=== PATIENT | female | born 1950 | race Caucasian/White ===

== ENCOUNTER 2017-08-13 06:49 | Day surgery (SDC) | payer MEDICARE ==
[2017-08-13] MEDS ORDERED: Sodium Chloride 0.9% 10 ML ONE (06:59)
[2017-08-13] MEDS: Bupivacaine 0.5%/EPINEPHrine 1:200,000 50 ML MDV ONE ×2 (07:17→08:05)
[2017-08-13] MEDS: Sodium Tetradecyl Sulfate 1% 20 MG/2 ML SDV ONE ×2 (07:18→09:00)
[2017-08-13] MEDS ORDERED: Sodium Chloride 0.9% 1,000 ML IV SCH (07:30)
[2017-08-13] MEDS ORDERED: Propofol 200 MG/20 ML SDV ONE ×2 (07:44→08:14)
[2017-08-13] MEDS ORDERED: fentaNYL 100 MCG/2 ML SDV ONE (07:45)
[2017-08-13] MEDS ORDERED: Midazolam 1 MG/ML 2 ML SDV ONE (07:45)
[2017-08-13] MEDS ORDERED: Lidocaine 1% with EPINEPHrine 1:100,000 50 ML MDV ONE (08:24)
[2017-08-13] MEDS: Lidocaine 1% w/EPINEPHrine 50 ML, Sodium Bicarbonate 5 MEQ in Sodium Chloride 0.9% 950 ML INJECT SCH ×2 (08:27→08:36)
[2017-08-13 09:38] VITALS: BP 165/84
--- NOTE | 2017-08-13 12:05 | OR ---
DATE OF PROCEDURE: 08/13/2017 PROCEDURE: 1. Radiofrequency ablation of left greater saphenous vein. 2. Radiofrequency ablation of right greater saphenous vein. 3. Sclerotherapy left leg, multiple. 4. Sclerotherapy right leg, multiple. 5. Compression wrapping, two-stage, left leg (23201). 6. Compression wrapping, right leg, two-stage (18442). COMPLICATIONS: None. COMMUNITY SERVICE SPECIALIST: None. ANESTHETIC: MAC/local. INDICATIONS: A pleasant 67-year-old female with venous reflux disease requiring intervention. Risks, benefits, alternatives, limitations including but not limited to infection, bleeding, and DVT formation were explained to the patient and wished to proceed. PROCEDURE IN DETAIL: The patient was placed in supine position. The left GSV was accessed first. Due to tortuousities, it was only accessed at the level of the proximal calf. This was accessed by using a 21-gauge needle that was exchanged for a 35,000th wire, then exchanged for a 7-Bahamian sheath. 1% lidocaine with epinephrine was used to anesthetize the incision spot prior to this. The RFA probe was then advanced 2 to 3 cm from the saphenofemoral junction. This was verified a second and third time. A tumescent fluid again would be injected in a 1 cm jacket around this. The RFA probe was deployed x2 proximally and distally and x1 in all other segments. Sheath and device were then removed. Direct pressure was held for 10 minutes. Dermabond was applied. The same procedure was performed on the right leg, same manner, same fashion, same technique, in the same location using the same sequence. Sclerotherapy was then performed left and right legs using 0.33% sodium tetradecyl. This was always drawn back to ensure intravascular injection only. No more than 2 mL was injected in one location. Six on the right, seven on the left. Two-stage compression wrapping was then performed using CoFlex wrapping in a [id number] fashion, quqhsdqi-[id number]-bpeplf gradient. The patient tolerated the procedure well. Robby Doshi MD /[id number]
== END 2017-08-13 09:55 | disposition home or self-care (01) ==
LOC: JP.SDS 06:49
PROVIDERS: ATTEND Surgery
DX: I87.2 Venous insufficiency (chronic) (peripheral) (principal); M79.89 Other specified soft tissue disorders; M79.605 Pain in left leg; M79.604 Pain in right leg
CPT/HCPCS: 36471; 36475; J1642; J2250; J2704; J3010; J7040; J7050; J3490

== ENCOUNTER 2018-02-10 07:40 | Day surgery (SDC) | payer MEDICARE ==
[2018-02-10] MEDS ORDERED: Midazolam 1 MG/ML 2 ML SDV ONE (08:12)
[2018-02-10] MEDS ORDERED: Propofol 200 MG/20 ML SDV ONE (08:12)
[2018-02-10] MEDS ORDERED: fentaNYL 100 MCG/2 ML SDV ONE (08:12)
[2018-02-10] MEDS: Lactated Ringers 1,000 ML IV SCH (08:20)
[2018-02-10 10:40] VITALS: BP 144/73
--- NOTE | 2018-02-10 14:26 | OR ---
DATE OF PROCEDURE: 02/10/2018 PREOPERATIVE DIAGNOSIS: Colon cancer screening. POSTOPERATIVE DIAGNOSIS: Unremarkable colonoscopy. PROCEDURE: Colonoscopy to the cecum. SURGEON: Antonino Manuel MD. ANESTHESIA: IV anesthesia with monitored anesthesia care. INDICATION: This 68-year-old white female is referred for a colonoscopy for colon cancer screening. She says her last colonoscopic exam was done 10 years ago. I counseled her for the procedure including risks and alternatives, and she gave her informed consent to proceed. DESCRIPTION OF PROCEDURE: The patient was placed in the left lateral decubitus position. IV anesthesia was administered by the Anesthesia Service. Time-out was held. A rectal exam was performed, which was unremarkable. The flexible video Olympus colonoscope was introduced through her anus, up her rectum, and out her colon all way to the cecum. Once the cecum was reached, the scope was slowly withdrawn, examining the mucosa throughout. No mucosal abnormalities were noted. The scope was retroflexed in the rectum with the distal rectum appearing unremarkable. The scope was straightened and removed. She tolerated the procedure well. Antonino Manuel MD /[id number]
== END 2018-02-10 10:45 | disposition home or self-care (01) ==
LOC: JP.SDS 07:40
PROVIDERS: ATTEND Surgery
DX: Z12.11 Encounter for screening for malignant neoplasm of colon (principal); I10 Essential (primary) hypertension; Z88.8 Allergy status to other drugs, medicaments and biological substances
CPT/HCPCS: J2250; J2704; J3010; J7120

== ENCOUNTER 2019-09-26 08:04 | Day surgery (SDC) | payer MEDICARE ==
[~2019-09-26 08:04] MED LIST: Lactated Ringers 1,000 ML IV SCH; ceFAZolin 2 GM in Sodium Chloride 0.9% 50 ML IV ONE
[2019-09-26] MEDS ORDERED: Neostigmine Methylsulfate 1 MG/ML 5 ML Syringe ONE (08:36)
[2019-09-26] MEDS ORDERED: fentaNYL 100 MCG/2 ML SDV ONE (08:36)
[2019-09-26] MEDS ORDERED: Succinylcholine 200 MG/10 ML MDV ONE (08:36)
[2019-09-26] MEDS ORDERED: Glycopyrrolate 0.2 MG/ML 5 ML MDV ONE (08:36)
[2019-09-26] MEDS ORDERED: Dexamethasone 4 MG/ML SDV ONE (08:36)
[2019-09-26] MEDS ORDERED: Propofol 200 MG/20 ML SDV ONE (08:36)
[2019-09-26] MEDS ORDERED: Ondansetron 4 MG/2 ML SDV ONE (08:36)
[2019-09-26] MEDS ORDERED: Rocuronium 50 MG/5 ML Vial ONE (08:36)
[2019-09-26] MEDS: Nozin Nasal Sanitizer NASBOTH SCH ×3 (08:49→21:19)
[2019-09-26] MEDS ORDERED: Bupivacaine 0.5% 30 ML SDV ONE (10:41)
[2019-09-26] MEDS ORDERED: Midazolam 1 MG/ML 2 ML SDV ONE (10:45)
[2019-09-26] MEDS: Povidone-Iodine 10% Soln 118.25 ML Bottle ONE ×2 (12:05→13:00)
[2019-09-26] MEDS ORDERED: Morphine 2 MG/ML Syringe IVPUSH PRN (13:32)
[2019-09-26] MEDS ORDERED: Ondansetron 4 MG/2 ML SDV IVPUSH PRN (13:32)
[2019-09-26] MEDS ORDERED: Acetaminophen/oxyCODONE 325-5 MG Tab PO PRN (13:32)
--- NOTE | 2019-09-26 14:09 | CR ---
Shoulder 1V Rt CLINICAL HISTORY: Postop FINDINGS: Patient is status post right shoulder reverse arthroplasty. Components appear well seated. There is degenerative change the AC joint Impression: Status post reverse right shoulder arthroplasty
[2019-09-26] MEDS: Ketorolac 30 MG/ML SDV IVPUSH SCH ×2 (14:46→21:18)
[2019-09-26] MEDS: ceFAZolin 1 GM in Premix Bag 1 BAG IV SCH (15:23)
[2019-09-26] MEDS: Hydrochlorothiazide 12.5 MG Cap PO SCH (15:27)
[2019-09-26] MEDS: Sodium Chloride 0.9% 1,000 ML IV SCH (17:19)
[2019-09-26] MEDS ORDERED: Pravastatin 20 MG Tab PO SCH (21:00)
[2019-09-26] MEDS: Acetaminophen/HYDROcodone 325-5 MG Tab PO PRN (21:17)
[2019-09-27] MEDS: ceFAZolin 1 GM in Premix Bag 1 BAG IV SCH ×2 (00:39→08:01)
[2019-09-27] MEDS: Sodium Chloride 0.9% 1,000 ML IV SCH (01:43)
[2019-09-27] MEDS: Ketorolac 30 MG/ML SDV IVPUSH SCH (06:28)
[2019-09-27] MEDS: Hydrochlorothiazide 12.5 MG Cap PO SCH (08:00)
[2019-09-27] MEDS: Acetaminophen/HYDROcodone 325-5 MG Tab PO PRN (08:01)
[2019-09-27] MEDS: Nozin Nasal Sanitizer NASBOTH SCH (08:09)
[2019-09-27] MEDS ORDERED: amLODIPine 5 MG Tab PO SCH (09:00)
[2019-09-27] MEDS ORDERED: Aspirin 81 MG Tab.Chew PO SCH (09:00)
[2019-09-27] MEDS ORDERED: Atenolol 50 MG Tab PO SCH (09:00)
[2019-09-27 12:01] VITALS: BP 124/62; PULSE 59
--- NOTE | 2019-10-05 13:47 | OR ---
DATE OF PROCEDURE: 09/26/2019 SURGEON: Mitul Arias MD PREOPERATIVE DIAGNOSIS: Rotator cuff arthropathy, right shoulder. POSTOP DIAGNOSIS: Rotator cuff arthropathy, right shoulder. PROCEDURE: Reverse total shoulder arthroplasty, right shoulder, using Elvia trabecular metal components. ANESTHESIA: Interscalene block with general. INDICATIONS: Ami is a 69-year-old female with a history of progressive pain and disability in her right arm over the past year. X-rays and examination are consistent with rotator cuff arthropathy with superior migration of the humeral head. She has limited active range of motion above shoulder level. Now presents for a reverse shoulder arthroplasty. Risks, benefits, and potential complications of the procedure were discussed. DESCRIPTION OF PROCEDURE: After adequate anesthesia was obtained, the patient was placed in a modified beach-chair position. Right shoulder and arm were then prepped and draped in a sterile fashion. Anterior incision was made and carried down through the subcutaneous tissues. The cephalic vein was identified and retracted laterally with the deltoid. The clavipectoral fascia was divided and a self-retaining retractor was placed beneath the conjoined tendon and the deltoid. The subscapularis was then resected off the lesser tuberosity exposing the joint. Moderate effusion was present. The capsule was released inferiorly and once this was accomplished, the arm was externally rotated presenting the humeral head into the wound. Complete tear of the rotator cuff was present with retraction back to the glenoid. Suture anchors were present in the tuberosity. Biceps tendon was not within the bicipital groove consistent with a chronic tear of the long head. Starting awl was then placed into the humeral head aligning with the shaft. The shaft was then sequentially reamed by hand. The last reamer was left in place with good cortical contact. Resection guide was then placed and an oscillating saw used to resect the humeral head. The metaphyseal reamer was then utilized. A trial stem was then placed with excellent fit. Retractor was then placed about the glenoid. The glenoid labrum was excised. Remaining portion of the biceps tendon was also excised. The inferior rim of the glenoid was identified and the aiming guide was placed setting it just at the inferior rim and a guide pin was placed into the glenoid. A center hole was then drilled over this. The glenoid was then reamed by hand removing the articular surface. Peg drill was then used. Shoulder was irrigated and the glenoid baseplate was then tapped into position. Additional fixation was obtained with variable angle screws. Excellent purchase was obtained with both screws and the locking caps were then placed. Glenosphere was then placed over the base plate and tapped into position. Confirmation this was seated was done both visually and by attempting to remove the glenoid with a [place]. This was irrigated once again and attention was returned to the humerus. Trial implant was then placed and the humerus was reduced. This showed a little bit of laxity and the next size up was then utilized, which provided excellent stability. The trial was removed. Trial stem was removed. The humerus was irrigated and the final trabecular metal stem was then tapped into position. The selected polyethylene implant was then secured into the humerus and the shoulder was reduced once again. This was taken through range of motion, showed no liftoff with functional range of motion and very good tension. The wound was thoroughly irrigated. This was followed by irrigation with dilute Betadine solution. This was left in place for 2.5 minutes and then irrigated once again. A drain was placed through a separate stab incision. Deltopectoral interval was then loosely closed with 0 Vicryl and skin was closed with 2-0 Vicryl and a running 3-0 Monocryl. Sterile dressing was applied. The patient tolerated the procedure very well. There were no complications. She was taken from the operating room in stable condition. Mitul Arias MD /[id number]
== END 2019-09-27 14:00 | disposition home or self-care (01) ==
LOC: JP.SDS 08:04 → JP.MS 13:32 → JP.SDS 09-27 14:00
PROVIDERS: ATTEND Specialist
DX: M75.121 Complete rotator cuff tear or rupture of right shoulder, not specified as traumatic (principal); M24.311 Pathological dislocation of right shoulder, not elsewhere classified; I10 Essential (primary) hypertension; E78.5 Hyperlipidemia, unspecified; K21.9 Gastro-esophageal reflux disease without esophagitis; M19.90 Unspecified osteoarthritis, unspecified site; E66.9 Obesity, unspecified; Z88.8 Allergy status to other drugs, medicaments and biological substances; Z79.82 Long term (current) use of aspirin; Z79.899 Other long term (current) drug therapy
CPT/HCPCS: 36415; 73020-26-RT; 73020-RT; 80048; 85027; 97110-GP; 97162-GP; 97165-GO; 97530-GP; 97535-GP; A9270-GY; C1713; J0330; J0690; J1100; J1885; J2250; J2405; J2704; J2710; J3010; J3490; J7030; J7050; J7120

== ENCOUNTER 2020-02-18 23:56 | Emergency (ER) | payer MEDICARE ==
[2020-02-19 00:25] VITALS: BP 123/69; PULSE 68
--- NOTE | 2020-02-19 00:36 | EDM.PDOC ---
ED HPI GENERAL MEDICAL PROBLEM - General Chief Complaint: General Stated Complaint: CHEST PAINS Time Seen by Provider: 02/19/20 00:21 Source of Information: Reports: Patient History Limitations: Reports: No Limitations - History of Present Illness INITIAL COMMENTS - FREE TEXT/NARRATIVE: Patient presents after a presumed syncopal episode at home earlier this evening. Her and others returned from fishing and as they were walking toward their house they noticed the patient down on all fours on their dirt driveway. At first they thought that she dropped something and was trying to find it but she was not standing up and family members ran ahead to check things out. Eventually were able to get her in a seated position and after that she was able to walk into the house. She did not really have recollection of what happened. She is not sure if she blacked out/passed out? She seemed unaware of the actual event that happened earlier, unwitnessed. After talking with her and observing her at home for bed, family was concerned and brought her here for additional evaluation. There has not been a previous episode such as this. She denies any recent changes in health or new illnesses. She does describe some left anterior chest wall discomfort, not really intrathoracic pain but more on the front of the chest with palpation and with movement of her left shoulder. She had right shoulder arthroplasty in the winter of 2018 but has no discomfort on that side. Onset: Today Location: Reports: Face, Chest Quality: Reports: Ache Severity: Mild Improves with: Reports: None Worsens with: Reports: None Associated Symptoms: Reports: Syncope (Possible syncopal event.) - Related Data Allergies Allergy/AdvReac Type Severity Reaction Status Date / Time atorvastatin calcium AdvReac Leg Cramps Verified 02/19/20 00:25 [From Lipitor] lisinopril AdvReac Cough Verified 02/19/20 00:25 Home Meds: Home Meds Aspirin [Anabella Chewable] 81 mg PO DAILY 08/24/13 [History] Calcium Carbonate/Vitamin D3 [Oyster Shell 500 mg + Vit D] 1 tab PO BID [History] Cholecalciferol (Vitamin D3) [Vitamin D3] 1,000 unit PO DAILY 08/24/13 [History] Glucosamine HCl [Vegetarian Glucosamine] 750 mg PO BID 08/24/13 [History] Multivitamin [Multi Vitamin Daily] 1 each PO DAILY 08/24/13 [History] Nabumetone 750 mg PO BID PRN 08/24/13 [History] Rattan-3/DHA/Epa/Fish Oil [Fish Oil 1,000 mg Softgel] 1,000 mg PO BID 08/24/13 [ History] amLODIPine [Norvasc] 5 mg PO DAILY 08/24/13 [History] atenoloL [Atenolol] 100 mg PO DAILY 08/24/13 [History] hydroCHLOROthiazide [Hydrochlorothiazide] 12.5 mg PO BID 01/14/16 [History] Pravastatin [Pravachol] 20 mg PO BEDTIME 08/13/17 [History] Past Medical History HEENT History: Reports: Impaired Vision Other HEENT History: wear glasses Cardiovascular History: Reports: High Cholesterol, Hypertension Respiratory History: Reports: None Gastrointestinal History: Reports: None Genitourinary History: Reports: None 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: Musculoskeletal History: Reports: Arthritis, Other (See Below) Other Musculoskeletal History: bilateral shoulder pain Neurological History: Reports: Other (See Below) Other Neuro History: Sciatica Psychiatric History: Reports: None Endocrine/Metabolic History: Reports: Obesity/BMI 30+ Hematologic History: Reports: Blood Transfusion(s) Immunologic History: Reports: None Oncologic (Cancer) History: Reports: None Dermatologic History: Reports: None - Infectious Disease History Infectious Disease History: Reports: Chicken Pox, Measles, Mumps - Past Surgical History Head Surgeries/Procedures: Reports: None HEENT Surgical History: Reports: Adenoidectomy, Tonsillectomy Cardiovascular Surgical History: Reports: None GI Surgical History: Reports: Colonoscopy Female Surgical History: Reports: Tubal Ligation Musculoskeletal Surgical History: Reports: Arthroscopic Knee, Shoulder Replacement, Shoulder Surgery, Other (See Below) Other Musculoskeletal Surgeries/Procedures:: R rotator cuff surgery (2007), R reverse TSA (09/26/2019) Dermatological Surgical History: Reports: None Social & Family History - Family History Family Medical History: Noncontributory - Caffeine Use Caffeine Use: Reports: Coffee ED ROS GENERAL - Review of Systems Review Of Systems: See Below Constitutional: Reports: Weakness HEENT: Reports: Nose Pain (Minor nose pain and abrasions, presumably from her fall episode earlier tonight.) Respiratory: Reports: No Symptoms Cardiovascular: Reports: No Symptoms, Chest Pain (There is pain with palpation in the left upper anterior chest and also with movement of the left shoulder.) GI/Abdominal: Reports: No Symptoms Musculoskeletal: Reports: Shoulder Pain (Left shoulder and left upper outer chest discomfort as noted above.) Skin: Reports: Wound (Scraped to nose surface.) Neurological: Reports: Dizziness (Earlier tonight, not present at this time.) Psychiatric: Reports: Anxiety ED EXAM, GENERAL - Physical Exam Exam: See Below Free Text/Narrative:: This is an adult female lying supine on the bed in room 5. Her provides much of the historical information. Exam Limited By: No Limitations General Appearance: Alert Nose: Other (Most of the anterior aspect of the nose has an abraded surface.) Throat/Mouth: Normal Inspection Neck: Non-Tender Respiratory/Chest: No Respiratory Distress, Lungs Clear, Other (Pain with palpation over the left pectoralis major muscle distribution.) Cardiovascular: Regular Rate, Rhythm GI/Abdominal: Soft, Non-Tender Extremities: No: Joint Swelling, Arm Pain Neurological: Alert, CN II-XII Intact EKG INTERPRETATION EKG Date: 02/19/20 Time: 00:50 Rhythm: NSR Rate (Beats/Min): 66 Ewen: LAD-Left Ewen Deviation P-Wave: Absent QRS: Normal ST-T: Normal QT: Normal EKG Interpretation Comments: Possible atrial fibrillation although there is a great deal of artifact in the EKG. The overall rate seems to be consistent however Course - Vital Signs Last Recorded V/S: Last Vital Signs Temp 36.3 C 02/19/20 00:20 Pulse 68 02/19/20 00:20 Resp 15 02/19/20 00:20 BP 123/69 02/19/20 00:20 Pulse Ox 98 02/19/20 00:20 Orthostatic Blood Pressure [] 111/56 Orthostatic Blood Pressure [] 124/73 Orthostatic Blood Pressure [] 135/60 - Orders/Labs/Meds Orders: Active Orders 24 hr Category Date Time Status EKG Documentation Completion [RC] ASDIRECTED Care 02/19/20 00:53 Ordered Orthostatic Vital Signs [RC] ASDIRECTED Care 02/19/20 00:51 Ordered Chest 2V [CR] Stat Exams 02/19/20 00:53 Ordered EKG 12 Lead [EK] Routine Ther 02/19/20 00:51 Ordered Labs: Laboratory Tests 05/24/20 05/24/20 Range/Units 01:00 01:00 WBC 6.8 (4.5-11.0) K/uL RBC 4.58 (3.30-5.50) M/uL Hgb 13.4 (12.0-15.0) g/dL Hct 39.9 (36.0-48.0) % MCV 87 (80-98) fL MCH 29 (27-31) pg MCHC 34 (32-36) % Plt Count 267 (150-400) K/uL Neut % (Auto) 60 (36-66) % Lymph % (Auto) 31 (24-44) % [place] % (Auto) 8 H (2-6) % Eos % (Auto) 1 L (2-4) % Baso % (Auto) 1 (0-1) % Sodium 135 L (140-148) mmol/L Potassium 2.8 L* (3.6-5.2) mmol/L Chloride 97 L (100-108) mmol/L Carbon Dioxide 25 (21-32) mmol/L Anion Gap 15.8 H (5.0-14.0) mmol/L BUN 13 (7-18) mg/dL Creatinine 0.7 (0.6-1.0) mg/dL Est Cr Clr Drug Dosing 69.01 mL/min Estimated GFR (MDRD) > 60 (>60) Glucose 122 H (74-106) mg/dL Calcium 8.4 L (8.5-10.1) mg/dL Total Bilirubin 0.4 (0.2-1.0) mg/dL AST 25 (15-37) U/L ALT 31 (12-78) U/L Alkaline Phosphatase 55 (46-116) U/L Troponin I < 0.017 (0.000-0.056) ng/mL Total Protein 6.9 (6.4-8.2) g/dL Albumin 3.5 (3.4-5.0) g/dL Globulin 3.4 (2.3-3.5) g/dL Albumin/Globulin Ratio 1.0 L (1.2-2.2) Meds: Medications Discontinued Medications Generic Name Dose Route Start Last Admin Trade Name Freq PRN Reason Stop Dose Admin Potassium Chloride 20 meq 02/19/20 02:22 Klor-Con M20 PO 02/19/20 02:23 ONETIME ONE - Re-Assessments/Exams Free Text/Narrative Re-Assessment/Exam: 02/19/20 01:17 Orthostatic vital signs will be obtained. Her EKG was read by the device as showing atrial fibrillation however the patient was shivering quite a bit and I believe this is artifact. I think there are low amplitude P waves present and the rhythm is regular, not irregular. 02/19/20 02:40 I reviewed her findings tonight which largely consist of a potassium of 2.8. Her heart rate has remained in the 60s throughout her time here. She has felt cold and has had some shivering periodically through her visit and this is affected EKG quality with presence of a large amount of artifact. When I returned to the room for the final time, she was sitting up on the edge of the bed and felt quite a bit better than earlier this evening. I will have her use potassium chloride 40 mEq twice daily over the next 5 days. She needs to contact her primary care team next week to arrange a recheck blood draw for potassium later in the week. She should avoid sudden changes in position. Depending on how this goes, she may need to wear an ambulatory heart rate monitor because the exact nature of the episode tonight is still incompletely characterized. Multiple questions were answered. Reasons to return to emergency department reviewed. Departure - Departure Time of Disposition: 02:23 Disposition: Home, Self-Care 01 Condition: Good Clinical Impression: Hypokalemia, Weakness, Left-sided chest wall pain - Discharge Information *PRESCRIPTION DRUG MONITORING PROGRAM REVIEWED*: Not Applicable *COPY OF PRESCRIPTION DRUG MONITORING REPORT IN PATIENT [facility]: Not Applicable Instructions: Hypokalemia, Potassium Content of Foods, Weakness Referrals: Azalea Orona MD [Primary Care Provider] - Forms: ED Department Discharge Additional Instructions: Take potassium tablets twice a day over the next 5 days. He should contact your primary care team next week to arrange a recheck potassium blood test. Avoid sudden changes in position. If an episode happens again like the one today, return to emergency department. You might need to wear an outpatient heart rate and rhythm monitor to help further pinpoint what may have happened earlier tonight. Return to ER if feeling worse in anyway. Sepsis Event Note - Focused Exam Vital Signs: Vital Signs Temp Pulse Resp BP Pulse Ox 02/19/20 00:20 36.3 C 68 15 123/69 98 Date Exam was Performed: 02/19/20 Time Exam was Performed: 02:36 - My Orders Last 24 Hours: My Active Orders 02/19/20 00:51 Orthostatic Vital Signs [RC] ASDIRECTED EKG 12 Lead [EK] Routine 02/19/20 00:53 EKG Documentation Completion [RC] ASDIRECTED Chest 2V [CR] Stat - Assessment/Plan Last 24 Hours: My Active Orders 02/19/20 00:51 Orthostatic Vital Signs [RC] ASDIRECTED EKG 12 Lead [EK] Routine 02/19/20 00:53 EKG Documentation Completion [RC] ASDIRECTED Chest 2V [CR] Stat
[2020-02-19] MEDS ORDERED: Potassium Chloride 20 MEQ Tab.ER PO ONE (02:22)
--- NOTE | 2020-02-21 09:45 | CR ---
CHEST: 2 view CLINICAL HISTORY:Chest wall pain COMPARISON:None FINDINGS: The heart size, pulmonary vascularity and hilar structures are normal. No infiltrate effusion or pneumothorax is seen. There are atherosclerotic changes in the aorta. IMPRESSION: No acute cardiopulmonary process.
== END 2020-02-19 02:43 | disposition home or self-care (01) ==
LOC: JP.ED 23:56
DX: E87.6 Hypokalemia (principal); R07.89 Other chest pain; I10 Essential (primary) hypertension; E78.00 Pure hypercholesterolemia, unspecified; E66.9 Obesity, unspecified; Z88.8 Allergy status to other drugs, medicaments and biological substances; Z79.82 Long term (current) use of aspirin; Z79.899 Other long term (current) drug therapy; Z68.34 Body mass index [BMI] 34.0-34.9, adult
CPT/HCPCS: 36415; 71046; 80053; 84484; 85025; 93005; 99284; 99285; A9270; 93010